=== PATIENT | female | born 1990 | race Caucasian/White ===

== ENCOUNTER → 2024-05-05 | Outpatient (CLI) | payer OTHER ==
--- NOTE | 2024-05-05 11:01 | MM ---
Reason for Exam: Clinical finding. Baseline mammogram. Patient History: Menarche at age 13. Maternal aunt had breast cancer. Mother had breast cancer under age 50. Last menstrual period: 04/07/2024 Prior Study Comparison: Patient's first Mammogram. No prior studies available for comparison. Tissue Density: The breasts are extremely dense, which lowers the sensitivity of mammography. Findings: Analyzed By CAD. The pattern is symmetrical. There are scattered punctate calcifications noted within the right breast. No suspicious cluster microcalcifications evident. A few scattered benign punctate calcifications are left breast. Marker is utilized on the right breast and a palpable abnormality. No suspicious underlying mass or distortion is identified. Ultrasound is recommended for additional workup. No suspicious groups of microcalcifications, spiculated or lobular masses, architectural distortion or other secondary signs of malignancy are mammographically apparent. Overall Assessment: Incomplete: need additional imaging evaluation, BI-RAD 0 Management: Diagnostic Breast Ultrasound of the right breast. A negative mammogram report should not preclude additional follow up of suspicious palpable abnormalities. Patient should continue monthly self breast exam. A clinical breast exam by your physician is recommended on an annual basis and results should be correlated with mammographic findings. Note on Rhina scores and lifetime risk: 1. A Rhina score greater than 3% is considered moderate risk. If this is the case, consider specialist referral to assess eligibility for a risk reducing agent. 2. If overall lifetime risk for the development of breast cancer is 20% or higher, the patient may qualify for future screening with alternating mammogram and breast MRI. [facility], , 05/05/2024 10:58 AM. Electronically signed and approved by: Merrick Smith D.O. Radiologis
--- NOTE | 2024-05-05 13:55 | USB ---
Reason for Exam: Additional evaluation requested from prior study. Patient History: Menarche at age 13. Maternal aunt had breast cancer. Mother had breast cancer under age 50. Technique: Method: Targeted. Findings: The area of palpable concern of the right breast, the axilla of the right breast and the retroareolar of the right breast were scanned. There is a large simple appearing cyst with good through transmission and posterior wall enhancement at the 9:00 position 8 cm nipple measuring 2.3 x 1.0 x 1.8 cm. This correlates with the palpable region. Multiple additional simple appearing cysts are present 9:00 position. No suspicious solid lesions evident. Overall Assessment: Benign, BI-RAD 2 Management: Screening Mammogram of both breasts at age 41. A clinical breast exam by your physician is recommended on an annual basis and results should be correlated with mammographic findings. This exam should not preclude additional follow-up of suspicious palpable abnormalities. Results were given to the patient verbally at the time of exam. [facility], , 05/05/2024 11:20 AM. Electronically signed and approved by: Merrick Smith D.O. Radiologis
== END | disposition home or self-care (01) ==
LOC: RADMAMWWP 10:27
PROVIDERS: ATTEND Family Medicine
DX: N63.0 Unspecified lump in unspecified breast (principal); Z80.3 Family history of malignant neoplasm of breast; R92.343 Mammographic extreme density, bilateral breasts
CPT/HCPCS: 77066; 76642; G0279; 77062